=== PATIENT | male | born 1945 | race Two or more races ===

== ENCOUNTER 2023-09-05 18:36 | Inpatient (IN) | payer OTHER ==
[~2023-09-05] VITALS: Ht 172.7 cm; Wt 63.5 kg
[~2023-09-05 18:36] MED LIST: COZAAR25 MG
[2023-09-05] MEDS ORDERED: ARICEPT10 MG (18:42)
[2023-09-05] MEDS ORDERED: PAXIL20 MG (18:42)
[2023-09-05 19:53] LABS: HEMATOCRIT 36.2 % (39.0-48.0); HEMOGLOBIN 12.1 g/dL (13-16.00); MEAN CELL VOLUME 93.8 fL (80.0-100.00); MEAN CORPUSCULAR HEMOGLOBIN 31.3 pg (27.00-32.0); MEAN CORPUSCULAR HGB CONC 33.4 g/dl (32.0-36.0); PLATELET COUNT 166 K/uL (150-450); RED BLOOD COUNT 3.86 M/uL (4.00-6.00); RED CELL DISTRIBUTION WIDTH 15.7 % (11.5-14.5)
[2023-09-05 20:06] LABS: ABG PH 7.506 (7.35-7.45); ABG PO2 59.7 mmHg (80-100); ABG pCO2 29.4 mmHg (35-45); BASE EXCESS 0.8 mmol/l; BICARBONATE 22.7 mmol/l (23-25); SaO2 93.1 %; Tco2 23.6 mmol/l; allen test SATISFACTORY; o2 21 %; puncture site RADIAL LEFT
[2023-09-05 20:27] LABS: CALCIUM 8.9 mg/dL (8.5-10.1); CREATININE SERUM 1.01 mg/dL (0.70-1.30); GFR 71.82; POTASSIUM 3.93 mEq/L (3.5-5.1)
[2023-09-05 20:32] LABS: URINE APPEARANCE Turbid; URINE BILIRRUBIN Negative (NEGATIVE); URINE BLOOD Large; URINE COLOR Yellow; URINE GLUCOSE Negative (NEGATIVE); URINE LEUKOCYTE Large; URINE NITRATE Positive
[2023-09-05 20:33] LABS: INR 1.16; PARTIAL THROMBOPLASTIN TIME 28.7 SECONDS (22.0-34.0)
[2023-09-05 20:33] LABS: URINE EPITHELIAL CELLS 15.3 uL (0.0-38.8); URINE RBC 256.4 uL (0.0-20.8)
[2023-09-05 20:41] LABS: D DIMER > 35.20 MG/L
[2023-09-05 20:48] LABS: URINE BACTERIA > 9821.5 uL (0.0-1933); URINE MUCUS MODERATE; URINE PROTEIN 100 (NEGATIVE); URINE WBC > 5548.3 uL (0.0-23.2)
[2023-09-05 20:49] LABS: URINE BACTERIA MANY
[2023-09-06 06:28] LABS: ABG PH 7.472 (7.35-7.45); ABG PO2 137.8 mmHg (80-100); ABG pCO2 32.2 mmHg (35-45); BASE EXCESS 0.3 mmol/l; BICARBONATE 23.1 mmol/l (23-25); SaO2 99.3 %
[2023-09-06 06:29] LABS: allen test SATISFACTORY; o2 32 %; puncture site RADIAL RIGHT
[2023-09-08 12:10] LABS: HEMATOCRIT 31.6 % (39.0-48.0); HEMOGLOBIN 10.6 g/dL (13-16.00); MEAN CELL VOLUME 93.2 fL (80.0-100.00); MEAN CORPUSCULAR HEMOGLOBIN 31.2 pg (27.00-32.0); MEAN CORPUSCULAR HGB CONC 33.4 g/dl (32.0-36.0); PLATELET COUNT 211 K/uL (150-450); RED BLOOD COUNT 3.39 M/uL (4.00-6.00); RED CELL DISTRIBUTION WIDTH 15.6 % (11.5-14.5)
[2023-09-08 12:51] LABS: CALCIUM 8.7 mg/dL (8.5-10.1); CREATININE SERUM 0.73 mg/dL (0.70-1.30); GFR 104.46; MAGNESIUM 2.2 mg/dL (1.8-2.4); POTASSIUM 3.69 mEq/L (3.5-5.1)
[2023-09-08 13:11] LABS: PHOSPHOROUS 1.9 mg/dL (2.5-4.9)
[2023-09-09 07:09] LABS: HEMATOCRIT 31.8 % (39.0-48.0); HEMOGLOBIN 10.7 g/dL (13-16.00); MEAN CORPUSCULAR HEMOGLOBIN 31.3 pg (27.00-32.0); MEAN CORPUSCULAR HGB CONC 33.7 g/dl (32.0-36.0); PLATELET COUNT 229 K/uL (150-450); RED BLOOD COUNT 3.42 M/uL (4.00-6.00); RED CELL DISTRIBUTION WIDTH 15.2 % (11.5-14.5)
[2023-09-09 07:47] LABS: ALBUMIN 1.9 gm/dL (3.4-5.0); BILIRUBIN TOTAL 0.64 mg/dL (0.3-1.2); CALCIUM 8.8 mg/dL (8.5-10.1); CREATININE SERUM 0.6 mg/dL (0.70-1.30); GFR 130.99; GLOBULINA 3.9 G/DL (2.4-3.5); POTASSIUM 4.03 mEq/L (3.5-5.1); TOTAL PROTEIN 5.8 gm/dL (6.4-8.2)
[2023-09-12 19:52] LABS: HEMATOCRIT 34.5 % (39.0-48.0); HEMOGLOBIN 11.7 g/dL (13-16.00); MEAN CELL VOLUME 92.6 fL (80.0-100.00); MEAN CORPUSCULAR HEMOGLOBIN 31.3 pg (27.00-32.0); MEAN CORPUSCULAR HGB CONC 33.8 g/dl (32.0-36.0); PLATELET COUNT 400 K/uL (150-450); RED BLOOD COUNT 3.72 M/uL (4.00-6.00); RED CELL DISTRIBUTION WIDTH 15.2 % (11.5-14.5)
[2023-09-13 20:18] LABS: CREATININE SERUM 0.82 mg/dL (0.70-1.30); GFR 91.35; POTASSIUM 3.87 mEq/L (3.5-5.1)
== END 2023-09-14 15:53 | disposition home or self-care (01) | DRG 689 ==
LOC: ER 18:36 → MEDI 22:48 → ICU-2 22:48 → ICU 22:48 → MEDI 09-08 11:25
PROVIDERS: General Practice; Internal Medicine; Internal Medicine Infectious Disease; ADMIT Specialist; ATTEND Specialist
PROC: B24BYZZ Ultrasonography of Heart with Aorta using Other Contrast (ICD-10-PCS; principal; 2023-09-05)
PROC: B54DZZZ Ultrasonography of Bilateral Lower Extremity Veins (ICD-10-PCS; 2023-09-05)
PROC: B345ZZZ Ultrasonography of Bilateral Common Carotid Arteries (ICD-10-PCS; 2023-09-05)
PROC: BW24ZZZ Computerized Tomography (CT Scan) of Chest and Abdomen (ICD-10-PCS; 2023-09-05)
DX: N39.0 Urinary tract infection, site not specified (principal); A41.9 Sepsis, unspecified organism; I26.99 Other pulmonary embolism without acute cor pulmonale; I21.A1 Myocardial infarction type 2; J81.1 Chronic pulmonary edema; I50.20 Unspecified systolic (congestive) heart failure; N17.9 Acute kidney failure, unspecified; R09.02 Hypoxemia; F03.90 Unspecified dementia, unspecified severity, without behavioral disturbance, psychotic disturbance, mood disturbance, and anxiety; I10 Essential (primary) hypertension; I11.0 Hypertensive heart disease with heart failure; B96.1 Klebsiella pneumoniae [K. pneumoniae] as the cause of diseases classified elsewhere; B96.20 Unspecified Escherichia coli [E. coli] as the cause of diseases classified elsewhere

== ENCOUNTER 2023-09-15 16:15 | Emergency (ER) | payer OTHER ==
[~2023-09-15] VITALS: Ht 177.8 cm; Wt 54.4 kg
[~2023-09-15 16:15] MED LIST changes: +ARICEPT10 MG; +PAXIL20 MG
[2023-09-15 16:51] LABS: HEMATOCRIT 34.8 % (39.0-48.0); HEMOGLOBIN 11.3 g/dL (13-16.00); MEAN CELL VOLUME 94.1 fL (80.0-100.00); MEAN CORPUSCULAR HEMOGLOBIN 30.5 pg (27.00-32.0); MEAN CORPUSCULAR HGB CONC 32.4 g/dl (32.0-36.0); PLATELET COUNT 538 K/uL (150-450); RED CELL DISTRIBUTION WIDTH 15.5 % (11.5-14.5)
[2023-09-15 17:14] LABS: ALBUMIN 1.9 gm/dL (3.4-5.0); BILIRUBIN TOTAL 0.48 mg/dL (0.3-1.2); CALCIUM 9.1 mg/dL (8.5-10.1); CREATININE SERUM 0.76 mg/dL (0.70-1.30); GFR 99.72; GLOBULINA 4.6 G/DL (2.4-3.5); POTASSIUM 3.49 mEq/L (3.5-5.1); TOTAL PROTEIN 6.5 gm/dL (6.4-8.2)
[2023-09-15 17:21] LABS: URINE APPEARANCE Clear; URINE BILIRRUBIN Negative (NEGATIVE); URINE BLOOD Large; URINE COLOR Dark Yellow; URINE GLUCOSE Negative (NEGATIVE); URINE LEUKOCYTE Small; URINE NITRATE Negative; URINE PROTEIN Trace (NEGATIVE)
[2023-09-15 17:24] LABS: URINE BACTERIA 16.3 uL (0.0-1933); URINE EPITHELIAL CELLS 3.4 uL (0.0-38.8); URINE RBC 210.9 uL (0.0-20.8); URINE WBC 64.9 uL (0.0-23.2)
== END 2023-09-15 19:04 | disposition home or self-care (01) ==
LOC: ER 16:15
PROVIDERS: General Practice
DX: R33.9 Retention of urine, unspecified (principal)